=== PATIENT | female | born 1990 | race Two or more races ===

== ENCOUNTER 2024-02-15 13:38 | Emergency (ER) | payer MEDICAID ==
[~2024-02-15] VITALS: Ht 162.6 cm; Wt 49.9 kg
[2024-02-15] MEDS ORDERED: AMOX-430 PO (15:33)
[2024-02-15] MEDS ORDERED: IBUP-1955 PO (15:33)
[2024-02-15] MEDS: KETOROLAC TROMETHAMINE 15 MG/ML VIAL IM ONE (15:35)
[2024-02-15 15:42] VITALS: BP 111/61; TEMP 101.9; O2SAT 99
== END 2024-02-15 15:56 | disposition home or self-care (01) ==
LOC: ER 14:21
DX: J06.9 Acute upper respiratory infection, unspecified (principal); R05.9 Cough, unspecified; R09.81 Nasal congestion; R50.9 Fever, unspecified; M79.10 Myalgia, unspecified site; Z20.822 Contact with and (suspected) exposure to COVID-19